=== PATIENT | female | born 1985 | race Two or more races ===

== ENCOUNTER 2023-09-26 10:00 | Emergency (ER) | payer SELFPAY | END 2023-09-26 11:25 | disposition home or self-care (01) | LOC: MW.ED 10:00 → EDBD 10:00 → MW.ED 11:25 | DX: H66.92 Otitis media, unspecified, left ear (principal); Z88.6 Allergy status to analgesic agent; Z88.7 Allergy status to serum and vaccine | CPT/HCPCS: 99283 ==

== ENCOUNTER 2023-10-08 00:41 | Emergency (ER) | payer SELFPAY ==
[2023-10-08] MEDS ORDERED: Famotidine 20 MG Tab PO ONE (00:47)
[2023-10-08] MEDS ORDERED: Cetirizine 10 MG Tab PO ONE (00:47)
[2023-10-08] MEDS ORDERED: hydrOXYzine HCl 25 MG Tab PO ONE ×2 (00:47→01:49)
[2023-10-08] MEDS ORDERED: Dexamethasone 4 MG Tab PO ONE (01:49)
[2023-10-08] MEDS ORDERED: diphenhydrAMINE 50 MG Cap PO ONE (03:04)
== END 2023-10-08 04:50 | disposition home or self-care (01) ==
LOC: MW.ED 00:41
DX: L50.9 Urticaria, unspecified (principal); Z91.048 Other nonmedicinal substance allergy status; Z91.030 Bee allergy status; Z88.7 Allergy status to serum and vaccine
CPT/HCPCS: 99283; A9270; J8540